=== PATIENT | female | born 1980 | race Two or more races ===

== ENCOUNTER 2016-11-18 22:03 | Emergency (ER) | payer SELFPAY ==
[~2016-11-18] VITALS: Ht 149.9 cm; Wt 52.2 kg
--- NOTE | 2016-11-18 22:05 | NUR ---
To bed 6 a 36 yo female bibself and states that she has rash over her whole body for 3 days. Noted with generalized red spots all over body. afebrile. vss. initiated comfort measures. gowned. awaited for er md culp.
--- NOTE | 2016-11-18 22:26 | NUR ---
Patient discharged to home in stable condition. Written and verbal after care instructions given. Patient verbalizes understanding of instruction. Patient is ambulatory with steady gait.
[2016-11-18 22:27] VITALS: BP 152/116
== END 2016-11-18 22:27 | disposition home or self-care (01) ==
LOC: ER 22:03
DX: B01.9 Varicella without complication (principal); F32.9 Major depressive disorder, single episode, unspecified; F41.9 Anxiety disorder, unspecified
CPT/HCPCS: 99282; A4606; Z7610

== ENCOUNTER 2017-11-23 19:18 | Emergency (ER) | payer MEDICAID ==
[~2017-11-23] VITALS: Ht 149.9 cm; Wt 55.8 kg
[2017-11-23 19:27] VITALS: BP 140/99
[2017-11-23] MEDS ORDERED: ACETAMINOPHEN 325 MG TABLET ONE (22:56)
[2017-11-23] MEDS ORDERED: ACETAMINOPHEN 325 MG TABLET PO ONE (23:00)
[2017-11-23] MEDS: ACETAMINOPHEN 650 MG/20.3 ML UDC PO ONE (23:03)
== END 2017-11-23 23:06 | disposition home or self-care (01) ==
LOC: ER 19:19
DX: O99.89 Other specified diseases and conditions complicating pregnancy, childbirth and the puerperium (principal); M54.41 Lumbago with sciatica, right side; F41.9 Anxiety disorder, unspecified; F32.9 Major depressive disorder, single episode, unspecified; Z87.59 Personal history of other complications of pregnancy, childbirth and the puerperium; Z3A.24 24 weeks gestation of pregnancy
CPT/HCPCS: A4606; Z7610